=== PATIENT | male | born 1975 | race Caucasian/White ===

== ENCOUNTER 2016-12-03 21:02 | Emergency (ER) | payer OTHER ==
[2016-12-03 21:58] LABS: BASOPHIL 0.2 % (0-2); EOSINOPHIL 2.3 % (0-5); HCT 45.2 % (42.0-52.0); HGB 15.9 g/dl (13.2-18.0); LYMPHOCYTE 33.5 % (15-48); MCH 30.3 pg (25.0-31.0); MCHC 35.2 g/dL (32.0-36.0); MCV 86.3 fL (78.0-100.0); MPV 9.8 fL (6.0-9.5); PLT 230 K/uL (150-400); RBC 5.24 M/uL (4.70-6.00); RDW 12.4 % (11.5-14.0); WBC 8.7 K/uL (4.0-10.5)
[2016-12-03 22:15] LABS: ALBUMIN 4.5 g/dL (3.5-5.0); BILIRUBIN - TOTAL 0.4 mg/dL (0.1-1.0); CREATININE 1.3 mg/dL (0.7-1.2); GLOBULIN (CALCULATION) 2.8 g/dL (2.2-4.2); POTASSIUM 4.2 mmol/L (3.5-5.1); TOTAL PROTEIN 7.3 g/dL (6.4-8.3)
== END 2016-12-03 23:15 | disposition home or self-care (01) ==
LOC: FER 21:02
PROVIDERS: Emergency Medicine Emergency Medical Services
DX: R11.2 Nausea with vomiting, unspecified (principal); I10 Essential (primary) hypertension; F17.210 Nicotine dependence, cigarettes, uncomplicated; E86.9 Volume depletion, unspecified; Z87.19 Personal history of other diseases of the digestive system; Z90.49 Acquired absence of other specified parts of digestive tract
CPT/HCPCS: 36415; 74000; 80053; 82150; 83690; 85025; 93005; J2405